=== PATIENT | female | born 1985 | race African-American/Black ===

== ENCOUNTER 2016-03-27 20:59 | Inpatient (IN) | payer MEDICAID ==
[~2016-03-27] VITALS: Ht 175.3 cm; Wt 72.1 kg
[~2016-03-27 20:59] MED LIST: IBUP-238 PO; Z.0.NO CURRENT MEDS
[2016-03-27] MEDS ORDERED: NS 1000 ML XX PRN (22:30)
[2016-03-27] MEDS ORDERED: OXYTOCIN 30 UNITS 500ML PREMIX IV ONE (22:30)
[2016-03-27] MEDS ORDERED: LACTATED RINGER'S 1000 ML BOLUS IV PRN (22:30)
[2016-03-27] MEDS ORDERED: LIDOCAINE HCL 1% 50 ML VIAL INFIL PRN (22:30)
[2016-03-27] MEDS ORDERED: NS 1000 ML IV PRN (22:30)
[2016-03-27] MEDS ORDERED: LACTATED RINGER'S 1000 ML INJ 1,000 ML IV SCH (22:30)
[2016-03-27] MEDS ORDERED: NS 500 ML BOLUS IV PRN (22:30)
[2016-03-27] MEDS ORDERED: DINOPROSTONE 10 MG INSERT-LEAVE FOR 12 HOURS VAGINAL ONE (22:30)
[2016-03-27] MEDS ORDERED: LIDOCAINE HCL 1% 50 ML VIAL I-DERMAL PRN (22:30)
[2016-03-27] MEDS ORDERED: CITRIC ACID-SODIUM CITRATE LIQ 30 ML UDC PO SCH (22:30)
[2016-03-27] MEDS ORDERED: MINERAL OIL 10 ML VIAL TOP PRN (22:30)
[2016-03-27] MEDS: LACTATED RINGER'S 1000 ML IV SCH (22:35)
[2016-03-27 22:41] LABS: AUTOMATED NEUTROPHIL # 7.2 TH/MM3 (1.8-7.7); BASOPHIL % 0.4 % (0.0-2.0); EOSINOPHIL # 0.1 TH/MM3 (0-0.4); EOSINOPHIL % 1.1 % (0.0-4.0); HEMATOCRIT 31.7 % (35.0-46.0); HEMO FLAGS DIFF FINAL; LYMPH % 20.1 % (9.0-44.0); MEAN CELL VOLUME 90.4 FL (80.0-100.0); MEAN CORPUSCULAR HEMOGLOBIN 30.9 PG (27.0-34.0); MEAN CORPUSCULAR HGB CONC 34.2 % (32.0-36.0); MONO % 7.6 % (0.0-8.0); NEUT % 70.8 % (16.0-70.0); PLATELET COUNT 132 TH/MM3 (150-450); RED CELL DISTRIBUTION WIDTH 12.7 % (11.6-17.2); WHITE BLOOD COUNT 10.2 TH/MM3 (4.0-11.0)
[2016-03-27 23:17] LABS: BLOOD, URINE MOD (NEG); COMMENT (UR) CULT NOT INDICATED; CULTURE IF INDICATED CULT NOT INDICATED; GLUCOSE,URINE NEG (NEG); HYALINE CAST, URINE 1 /lpf (RARE); KETONE, URINE NEG (NEG); MUCUS URINE FEW /lpf (OCC); NITRITE,URINE NEG (NEG); SQUAMOUS EPITHELIAL CELL URINE 1 /hpf (0-5); URINE COLOR YELLOW (YELLW/STRAW)
[2016-03-27 23:46] VITALS: BP 115/60; PULSE 77; RESP 18
[2016-03-28] VITALS (26 sets, daily range): BP systolic 103–135; BP diastolic 57–81; PULSE 64–115; RESP 18; TEMP 97.9–98.3
[2016-03-28] MEDS: LACTATED RINGER'S 1000 ML IV SCH (03:42)
--- NOTE | 2016-03-28 06:40 | HHI.HP ---
HPI Chief Complaint IUGR, labor induction Date Seen: Mar 27, 2016 Time Seen: 23:00 Travel History International Travel<30 Days: No Contact w/Intl Traveler<30Days: No Known Affected Area: No History of Present Illness HPI 31 yo with EDC 04/11/16 presented to the office for growth ultrasound due to S<D on 03/27/16 with new finding of EFW 6%tile, symmetric growth restriction. 8/8 BPP and normal dopplers but due to term status pt was counseled and decision for labor induction. Pt's has been complicated by history of PPROM/PTD with G2, she has been maintained on [place] ( progesterone) injections from 17 - 36 weeks gestation this . Patient also has a history of HSV, has been without symptoms on Acyclovir, no prodrome or lesions currently. Has history of anxiety and sees counselor and also takes buspirone 10mg bid. Has h/o PPROM/PTD at 35 weeks with last . This is a best male that was measuring 47%tile at anatomy scan, growth at 35 weeks showed 14.7%tile and follow-up 03/27/16 showed new IUGR at EFW 6%tile. Patient does not complain of contractions, denies VB or LOF. Endorses good FM. Pain 1/10 dull pressure in pelvis. Para: 1 : 3 Miscarriage: 0 : 1 History Past Medical History Narrative Medical anxiety HSV ASCUS +HPV on PAP in Obstetric History Obstetric History G1 = EAB, age 21 G2 = 35 wk PPROM/PTL female 4#15oz 03/2008 G3 = current, male Past Surgical History Narrative Surgical D&C for EAB age 21 breast augmentation h/o colposcopy for abnl PAP Family History Family History: Negative Social History Alcohol Use: No Tobacco Use: No Substance Abuse: No Allergies-Medications (Allergen,Severity, Reaction): Coded Allergies: Penicillin (Verified Allergy, Mild, UNKNOWN, 03/27/08) Home Meds Reported Medications Ibuprofen (Motrin)800 Mg Uen276 Mg PO Q8HPRN #20 Ref 0 03/29/08 Miscellaneous (No Current Meds) Misc Ref 0 03/27/08 Review of Systems General / Constitutional: Weight Gain, No: Fever, Chills, Other Eyes: No: Diploplia, Blurred Vision, Visual changes, Pain, Photophobia HENT: No: Headaches, Vertigo, Lightheadedness Cardiovascular: No: Irregular Rhythm, Chest Pain or Discomfort, Palpitations, Tachycardia, Syncope, Varicosities, Edema, Cyanosis Respiratory: No: Cough, Short of Breath, Other Gastrointestinal: No: Nausea, Vomiting, Diarrhea Genitourinary: Pelvic Pain (pressure), No: Decreased Urinary Output, Oliguria Musculoskeletal: No: Limited ROM, Weakness, Cramping, Edema, Pain Skin: No Rash, No Itching, No Dryness, No Lumps, No Change in Pigmentation, No Change in Nails, No Alopecia, No Lesions Neurologic: No: Weakness, Dizziness, Syncope, Focal Abnormalities, Coordination Problem, Headache, Slurred Speech, Seizures Psychiatric: No: Depression, Suicidal Ideations, Homicidal Ideation Endocrine: No: Heat Intolerance, Cold Intolerance, Polydipsia, Polyuria, Other Physical Exam Narrative GENERAL: Well-nourished, well-developed patient. SKIN: Warm and dry. HEAD: Normocephalic and atraumatic. EYES: No scleral icterus. No injection or drainage. ENT: No nasal drainage noted. Mucous membranes pink. Airway patent. NECK: Supple, trachea midline. No JVD. CARDIOVASCULAR: Regular rate and rhythm without murmurs, gallops, or rubs. RESPIRATORY: Breath sounds equal bilaterally. No accessory muscle use. BREASTS: deferred ABDOMEN/GI: Abdomen soft, non-tender, bowel sounds present, no rebound, no guarding Gravid to [38] weeks size Fundal Height: [34] GENITOURINARY: External Genitalia: intact and normal in appearance BUS glands: [wnl] Cervix: [posterior, soft] Dilatation: [2] Effacement: [th] Station: [-3] Presentation: [vtx] Membranes: [intact] Uterine Contractions: [irreg] FHT's: 8/8 BPP in office, FHTs 140s EXTREMITIES: No cyanosis or edema. BACK: Nontender without obvious deformity. No CVA tenderness. NEUROLOGICAL: Awake and alert. Motor and sensory grossly within normal limits. Five out of 5 muscle strength in all muscle groups. Normal speech. Data Data Vital Signs Reviewed: Yes Orders Admit To Inpatient (03/27/16 ) Activity Oob Ad Shell (03/27/16 22:16) ^ Labor Induction (03/27/16 22:16) ^ Vaginal Insert (03/27/16 22:16) ^ Vaginal Lavage (03/27/16 22:16) ^ Heart (03/27/16 22:16) Dinoprostone Vag Insert (Cervidil Vag In (03/27/16 22:30) Admit To Inpatient (03/27/16 ) Vital Signs (Adult) .Per protocol (03/27/16:17) Activity Oob Ad Shell (03/27/16 22:17) ^ Heart (03/27/16:17) ^ Amnioinfusion (03/27/16:17) Urinary Catheter Management .ONCE (03/27/16:) Diet Liquid (03/28/16 Breakfast) Complete Blood Count With Diff (03/27/16:) Hold Clot (03/27/16:) Abo/Rh Blood Type (03/27/16:17) Urinalysis - C+S If Indicated (03/27/16 22:17) Resp Oxygen Non Rebreathe Mask (03/27/16 ) ^ Epidural / Intrathecal Infus (03/27/16 22:17) Lactated Ringer's 1000 Ml Inj (Lr 1000 M (03/27/16 22:30) Sodium Chlor 0.9% 1000 Ml Inj (Ns 1000 M (03/27/16 22:30) Lidocaine 1% Inj (50 Ml) (Xylocaine 1% I (03/27/16 22:30) Citric Acid-Sodium Citrate Liq (Bicitra (03/27/16 22:30) Fentanyl Inj (Fentanyl Inj) (03/27/16 22:30) Fentanyl Inj (Fentanyl Inj) (03/27/16 22:30) Oxytocin 30 Units-500ml Premix (Pitocin (03/27/16 22:30) Lidocaine 1% Inj (50 Ml) (Xylocaine 1% I (03/27/16 22:30) Light Mineral Oil (Muri-Lube Oil) (03/27/16 22:30) Zolpidem (Ambien) (03/28/16 21:00) Lactated Ringer's 1000 Ml Inj (Lr 1000 M (03/27/16 22:30) Lactated Ringer's 1000 Ml Inj (Lr 1000 M (03/27/16 22:30) Sodium Chlorid 0.9% 500 Ml Inj (Ns 500 M (03/27/16 22:30) Sodium Chlor 0.9% 1000 Ml Inj (Ns 1000 M (03/27/16 22:30) Labs Laboratory Tests Test 03/27/16 21:45 White Blood Count 10.2 Red Blood Count 3.50 Hemoglobin 10.8 Hematocrit 31.7 Mean Corpuscular Volume 90.4 Mean Corpuscular Hemoglobin 30.9 Mean Corpuscular Hemoglobin 34.2 Concent Red Cell Distribution Width 12.7 Platelet Count 132 Mean Platelet Volume 10.6 Neutrophils (%) (Auto) 70.8 Lymphocytes (%) (Auto) 20.1 Monocytes (%) (Auto) 7.6 Eosinophils (%) (Auto) 1.1 Basophils (%) (Auto) 0.4 Neutrophils # (Auto) 7.2 Lymphocytes # (Auto) 2.0 Monocytes # (Auto) 0.8 Eosinophils # (Auto) 0.1 Basophils # (Auto) 0.0 CBC Comment DIFF FINAL Differential Comment Urine Color YELLOW Urine Turbidity CLEAR Urine pH 7.0 Urine Specific [place] 1.030 Urine Protein TRACE Urine Glucose (UA) NEG Urine Ketones NEG Urine Occult Blood MOD Urine Nitrite NEG Urine Bilirubin NEG Urine Urobilinogen LESS THAN 2.0 Urine Leukocyte Esterase NEG Urine RBC 109 Urine WBC 1 Urine Squamous Epithelial 1 Cells Urine Hyaline Casts 1 Urine Mucus FEW Microscopic Urinalysis Comment CULT NOT INDICATED Blood Type O POSITIVE Blood Bank Comment Band and Hold Assessment/Plan Problem List: (1) Symmetric IUGR complicating , antepartum (2) History of delivery, currently Assessment and Plan 31 yo with IUP at 38w0d admit for new diagnosis symmetric IUGR, term labor induction 1) IUGR: new diagnosis on 03/27/16; previous anatomy scan EFW 47%tile, growth at 34 wks for S<D was 14.7%; follow up on 03/27/16 with EFW 6%tile; normal dopplers 2) IOL: for cervidil on admission, then evaluate in AM for additional induction methods as necessary 3) h/o PPROM/PTL with G2: has been on [place] injections from 17-36 wks this with no issues 4) GBS neg 5) h/o HSV: on ppx Acyclovir with no prodrome, no lesions 6) h/o anxiety: on buspirone 10mg bid, sees counselor; controlled 7) h/o ASCUS +HPV PAP: for f/u PP 8) status: vertex, male, EFW 2380g (5#4oz) 6.3%tile on 03/27/16 office scan ; 8/ BPP and normal dopplers 03/27/16 Elva Hardin MD Mar 28, 2016 06:40
[2016-03-28] MEDS: ACYCLOVIR 200 MG CAP PO SCH ×2 (07:50→13:40)
[2016-03-28] MEDS ORDERED: OXYTOCIN 30 UNITS/NS 500ML PREMIX IV SCH ×2 (08:45→11:00)
[2016-03-28] MEDS ORDERED: busPIRone HCL 10 MG TAB PO SCH (09:00)
[2016-03-28] MEDS ORDERED: fentaNYL 2MCG-BUPIV 0.125% INJ 100 ML ONE (14:32)
[2016-03-28] MEDS ORDERED: ePHEDrine/NS 50 MG/5 ML SYR IV PRN (16:15)
[2016-03-28] MEDS ORDERED: NO SYSTEM NARCOTICS XX PRN (16:15)
[2016-03-28] MEDS ORDERED: DO NOT ADMINISTER ANTICOAGULANTS XX PRN (16:15)
--- NOTE | 2016-03-28 16:43 | PD.OB.DELI ---
Anesthesia: Epidural Episiotomy: None Vaginal Delivery: Normal Presentation: Occiput anterior Nuchal Cord: x1 : Male One Minute : 8 Five Minute : 9 Weight: 5-1 Infant Care: Suctioned Placenta: Spontaneous delivery Laceration: 1 deg Repair: Chromic Chetna Sena MD Mar 28, 2016 16:43
[2016-03-28] MEDS ORDERED: SODIUM CHLORIDE 0.9% FLUSH 5 ML FLUSH IV PRN (16:45)
[2016-03-28] MEDS ORDERED: BENZOCAINE 20% TOPICAL SPRAY 60 ML CAN TOPICAL PRN (17:00)
[2016-03-28] MEDS ORDERED: OXYTOCIN 30 UNITS-500ML PREMIX 500 ML IV ONE (17:00)
[2016-03-28] MEDS ORDERED: ACETAMINOPHEN 325 MG TAB PO PRN (17:00)
[2016-03-28] MEDS ORDERED: DOCUSATE SODIUM 50 MG/SENNA 8.6 MG TAB PO PRN (17:00)
[2016-03-28] MEDS ORDERED: DIPHTH/TETANUS/ACEL PERTUSSIS (BOOSTER) 0.5 ML VIAL/PFS IM ONE (17:00)
[2016-03-28] MEDS ORDERED: WITCH HAZEL 50%/GLYCERIN 12.5% 40 PAD JAR TOPICAL PRN (17:00)
[2016-03-28] MEDS ORDERED: MEASLES, MUMPS, RUBELLA VACCINE 0.5 ML VIAL SQ ONE (17:00)
[2016-03-28] MEDS ORDERED: ZOLPIDEM TARTRATE 5 MG TAB PO PRN (17:00)
[2016-03-28] MEDS ORDERED: ONDANSETRON ODT 4 MG TAB PO PRN (17:00)
[2016-03-28] MEDS ORDERED: ALUMINUM/MAGNESIUM/SIMETH 30 ML CUP PO PRN (17:00)
[2016-03-28] MEDS ORDERED: ZOLPIDEM TARTRATE 5 MG TAB PO SCH (21:00)
[2016-03-28] MEDS ORDERED: SODIUM CHLORIDE 0.9% FLUSH 5 ML FLUSH IV SCH (21:00)
[2016-03-29 07:50] VITALS: BP 131/82; PULSE 80; RESP 18; TEMP 97.7
[2016-03-29] MEDS ORDERED: IBUP-232 PO (08:05)
--- NOTE | 2016-03-29 08:06 | HHI.DCPOC ---
Discharge Care Plan Diagnosis: (1) Symmetric IUGR complicating , antepartum (2) Anemia (3) Vaginal delivery Report Symptoms to Your Doctor -Temperate above 100.5 degrees -Redness, of incision or excessive or foul smelling drainage -Unusual pain or calf pain -Increased vaginal bleeding -Painful or difficulty urinating -Feelings of extreme sadness or anxiety after 2 weeks Goals to Promote Your Health * To prevent worsening of your condition and complications * To maintain your health at the optimal level Directions to Meet Your Goals Take your medications as prescribed Follow your dietary instruction Follow activity as directed Ensure plenty of rest for recovery Drink fluids for hydration Keep your appointments as scheduled Take your immunizations and boosters as scheduled If your symptoms worsen call your PCP, if no PCP go to Urgent Care Center or Emergency Room Smoking is Dangerous to Your Health. Avoid second hand smoke Call the 24-hour crisis hotline for domestic abuse at Angela Edmonds MD Mar 29, 2016 08:06
[2016-03-29] MEDS: IBUPROFEN 600 MG TAB PO PRN ×3 (08:08→23:16)
[2016-03-29 14:30] VITALS: RESP 18
[2016-03-29 19:32] VITALS: BP 136/84; PULSE 76; RESP 15; TEMP 98.1
== END 2016-03-30 11:09 | disposition home or self-care (01) | DRG 774 ==
LOC: H2EB 20:59 → H1EA 03-28 20:10
PROVIDERS: ADMIT Obstetrics & Gynecology; ATTEND Obstetrics & Gynecology
PROC: 3E0P7GC Introduction of Other Therapeutic Substance into Female Reproductive, Via Natural or Artificial Opening (ICD-10-PCS; principal; 2016-03-28)
PROC: 10E0XZZ Delivery of Products of Conception, External Approach (ICD-10-PCS; 2016-03-28)
PROC: 0HQ9XZZ Repair Perineum Skin, External Approach (ICD-10-PCS; 2016-03-28)
DX: O36.5930 Maternal care for other known or suspected poor fetal growth, third trimester, not applicable or unspecified (principal); O98.32 Other infections with a predominantly sexual mode of transmission complicating childbirth; O99.344 Other mental disorders complicating childbirth; A63.0 Anogenital (venereal) warts; O09.213 Supervision of pregnancy with history of pre-term labor, third trimester; O69.81X0 Labor and delivery complicated by cord around neck, without compression, not applicable or unspecified; O70.0 First degree perineal laceration during delivery; F41.9 Anxiety disorder, unspecified; Z3A.38 38 weeks gestation of pregnancy; Z37.0 Single live birth; Z88.0 Allergy status to penicillin
CPT/HCPCS: 59025; 81001; 85025; 86900; 86901; 88307; J2590; J3010; J7120